=== PATIENT | male | born 1965 | race Caucasian/White ===

== ENCOUNTER 2024-02-26 02:01 | Emergency (ER) | payer BC, SELFPAY ==
[2024-02-26 02:08] VITALS: BP 133/87; PULSE 82; RESP 15; TEMP 36.8; O2SAT 98
[2024-02-26 02:33] LABS: Basophils Percent Auto 0.3 % (0.2-1.2); Eosinophils Absolute Auto 0.1 K/mm3 (0-0.3); Eosinophils Percent Auto 0.5 % (0-4.4); Hematocrit 37.9 % (42.0-52.0); Hemoglobin 13.1 g/dL (14.0-18.0); Immature Granulocyte Absolute 0.04 K/mm3 (0.00-0.031); Immature Granulocyte Percent A 0.4 % (0-0.5); Lymphocytes Absolute Auto 1.15 K/mm3 (0.9-3.2); Lymphocytes Percent Auto 12.6 % (18.3-44.2); Mean Corpuscular HGB Conc 34.6 g/dl (32-36); Mean Corpuscular Hemoglobin 28.5 pg (26-34); Mean Corpuscular Volume 82.4 fl (80-100); Mean Platelet Volume 8.8 fl (7.4-10.4); Monocytes Absolute Auto 0.9 K/mm3 (0.1-0.6); Monocytes Percent Auto 10.3 % (2.6-8.5); Neutrophils Absolute Auto 6.9 K/mm3 (1.3-6.7); Neutrophils Percent Auto 75.9 % (45.5-73.1); Platelet Count Result 244 k/mm3 (150-375); Red Cell Distribution Width 12.9 % (11.5-14.5); White Blood Count 9.1 K/mm3 (4.5-10.0)
--- NOTE | 2024-02-26 02:38 | ED.ABDPAIN ---
HPI - Abdominal Pain General Chief Complaint: Abdominal Pain Stated Complaint: kidney stones Time Seen by Provider: 02/26/24 02:16 History of Present Illness HPI narrative: This is a 58-year-old male, with no significant past medical history, presents to the emergency department complaining of 5 days of right lower quadrant abdominal pain. He describes the pain as pressure-like, rated 6/10 associated with nausea though no vomiting. The patient states in the past day, he has also noticed dysuria, difficulty urinating and discoloration of his urine. He has no other complaints at this time. Related Data Allergies Allergy/AdvReac Type Severity Reaction Status Date / Time aspirin Allergy Anaphylaxis Verified 02/26/24 02:13 Review of Systems Review of Systems: All systems reviewed & are unremarkable except as noted in HPI and below PMFSH Past Medical History Medical History No significant past medical history Surgical History Surgical History No significant past surgical history Social History Social History Smoking status: Never smoker Alcohol intake: current Substance use: never Exam Narrative: GENERAL: Well-developed, well-nourished, and in no acute distress. HEAD: Normocephalic, atraumatic. EYES: PERRLA and EOMI. CHEST: Clear to auscultation. No respiratory distress. No wheezes rales or rhonchi HEART: Regular rate and rhythm. No murmur heard. Normal peripheral pulses. ABDOMEN: Soft, nontender, nondistended, normal active bowel sounds. No noted inguinal hernia. CVA tenderness bilaterally, left greater than right NEURO: Alert and oriented x3. No focal deficit. Moving all 4 limbs spontaneously PSYCH: Normal mood and affect. Course Course Emergency Course: 03:20 - CBC demonstrates mild anemia with hemoglobin of 13.1 but is otherwise unremarkable. Chemistry demonstrates minimal hyponatremia with sodium of 136 but is otherwise unremarkable. Urinalysis demonstrates 21-50 white blood cells, leukocyte esterase and bacteria without squamous cells. Given patient's CVA tenderness, I suspect pyelonephritis. In the absence of hematuria and an otherwise unremarkable exam, I do not suspect the need for imaging at this time. Will discharge with oral antibiotics and recommendation for primary care follow-up. I discussed these findings recommendations with the patient who voiced understanding is comfortable with the plan. Discussed return and emergency precautions including signs/symptoms of acute abdomen an antibiotic failure. The patient voiced understanding and agreement with the plan. All questions answered to his satisfaction. Vital Signs Vital signs: Vital Signs Temperature 98.2 F 02/26/24 02:08 Pulse Rate 82 02/26/24 02:08 Respiratory Rate 15 02/26/24 02:08 Blood Pressure 133/87 02/26/24 02:08 Pulse Oximetry 98 02/26/24 02:08 Oxygen Delivery Room Air 02/26/24 02:08 Temperature 98.2 F 02/26/24 02:08 Pulse Rate 82 02/26/24 02:08 Respiratory Rate 15 02/26/24 02:08 Blood Pressure 133/87 02/26/24 02:08 Pulse Oximetry 98 02/26/24 02:08 Oxygen Delivery Room Air 02/26/24 02:08 MDM - Abdominal Pain MDM Narrative Medical decision making narrative: Plan: Labs, pain control, reassess Differential Diagnosis Differential diagnosis: Likely calculus of kidney, diverticulitis, gastroenteritis and other (UTI, pyelonephritis, other) Lab Data 02/26/24 02:18 02/26/24 02:18 Labs: Lab Results 02/26/24 Range/Units 02:18 WBC 9.1 (4.5-10.0) K/mm3 RBC 4.60 (4.6-6.20) M/mm3 Hgb 13.1 L (14.0-18.0) g/dL Hct 37.9 L (42.0-52.0) % MCV 82.4 (80-100) fl MCH 28.5 (26-34) pg MCHC 34.6 (32-36) g/dl RDW 12.9 (11.5-14.5) % Plt Count 244 (150-375) k/mm3 MPV 8.8 (7.4-
[2024-02-26 02:51] LABS: Alanine Aminotransferase 47 U/L (6-50); Albumin Level 4.2 g/dL (3.5-5.1); Alkaline Phosphatase 145 U/L (38-126); Anion Gap 7 mmol/L (4-12); Aspartate Amino Transferase 36 U/L (17-59); Bilirubin,Total 0.7 mg/dL (0.2-1.3); Blood Urea Nitrogen 17 mg/dL (9-20); Calcium 8.9 mg/dL (8.4-10.2); Carbon Dioxide 26 mmol/L (22-30); Chloride 103 mmol/L (98-107); Estimated CRCL calculation 56 ml/min; Estimated Glomerular Filt Rate > 60; Glucose 111 mg/dL (65-110); Lipase 140 U/L (23-300); Potassium 3.4 mmol/L (3.4-5.0); Sodium 136 mmol/L (137-145)
[2024-02-26 03:04] LABS: Appearance Urine Clear (Clear); Bacteria Urine 1+ /hpf; Bilirubin Urine Negative (Negative); Blood Urine Negative (Negative); Color Urine Yellow (Yellow); Glucose Urine UA Trace mg/dL (Negative); Ketones Urine 1+ mg/dL (Negative); Leukocyte Esterase Ur 1+ LEU/UL (Negative); Nitrate Urine Negative (Negative); Non Pathogenic Casts 0-2; Protein Urine 2+ mg/dL (Negative); RBC Urine 0-2 /hpf (0-2); Specific Grav Ur 1.026 (1.001-1.035); Squamous Epithelial Cell Urine None Seen /hpf (Few); WBC Urine 21-50 /hpf (0-3); pH Urine 5.5 (5.0-9.0)
[2024-02-26 03:07] LABS: Add Urine Microscopic? YES
[2024-02-26] MEDS: SULFAMETHOXAZOLE/TRIMETHOPRIM 800/160 MG DS TABLET 1 TAB PO (03:31)
== END 2024-02-26 03:34 | disposition home or self-care (01) ==
PROVIDERS: Emergency Provider Preventive Medicine Aerospace Medicine
DX: N12 Tubulo-interstitial nephritis, not specified as acute or chronic (principal); R10.30 Lower abdominal pain, unspecified
CPT/HCPCS: 36415; 80053; 81001; 83690; 85025; 87077; 87086; 87088; 87181; 99283; A9270

== ENCOUNTER 2024-03-18 08:33 | Outpatient (CLI) | payer BC, SELFPAY ==
--- NOTE | ~2024-03-18 | CT_ITS ---
EXAMINATION: CT abdomen pelvis wo/w con DATE: 03/18/2024 09:19 INDICATION: Kidney stone TECHNIQUE: Computed tomography (CT) of the abdomen and pelvis was performed without intravenous contr ast. CT of the abdomen and pelvis was then performed with a total of 130 mL Omnipaque-350 intravenous contrast using a double-bolus technique for simultaneous opacification of the renal parenchyma and r enal collecting system. The dose-length product was 762.43 mGy-cm. COMPARISON: None FINDINGS: Calcified right lower lobe nodule consistent with old granulomatous disease. Heart size is normal. No pericardial or pleural effusion. Liver, gallbladder, spleen, pancreas and bilateral adrenal glands a re normal. Bilateral kidneys are normal with symmetric enhancement, no urolithiasis or hydronephrosis . The renal collecting systems and ureters are opacified in their entirety with no evident filling de fects or urothelial irregularities. Mild trabeculation of the callosal surface of the bladder which m ay relate to chronic outlet obstruction from the enlarged prostate which measures 6.2 x 4.1 cm. Bowel s including the appendix are normal. No free intraperitoneal gas or fluid. No pathologically enlarged abdominal or pelvic lymphadenopathy. Mild lumbar and lower thoracic spondylosis. Small fat-containin g umbilical hernia. IMPRESSION: 1. Normal kidneys and ureters with no urolithiasis. 2. Mild trabeculated mucosal surface to the bladder likely related to chronic outlet obstruction from the enlarged prostate. Reviewed, dictated and finalized at location B. IMPRESSION: 1. Normal kidneys and ureters with no urolithiasis. 2. Mild trabeculated mucosal surface to the bladder likely related to chronic o utlet obstruction from the enlarged prostate.
== END 2024-03-18 08:34 | disposition home or self-care (01) ==
PROVIDERS: Visit Provider Urology
DX: N20.0 Calculus of kidney (principal)
CPT/HCPCS: 74178; Q9967